=== PATIENT | female | born 1945 | race Caucasian/White ===

== ENCOUNTER 2018-07-29 18:24 | Emergency (ER) | payer MEDICARE, BC ==
[~2018-07-29] VITALS: Ht 157.5 cm; Wt 89.8 kg
--- NOTE | 2018-07-29 18:42 | ED Chest Pain ---
General Stated Complaint: CHEST PAIN Source: patient History of Present Illness Date Seen by Provider: Jul 29, 2018 Time Seen by Provider: 18:28 Initial Comments 73 yo F presenting with complaints of general weakness for over a week. She states that she just does not feel good and she was feeling like dann peres had chest pressure since yesterday. She called her sister that is a nurse and was told to come get checked out today. she has not seen her doctor during the week. She is not any worse tonight but because of her sister telling her to come in to the ED she is here tonight. She has had nausea but no vomiting. She has been having d iarrhea but states it has been a recurring issue for her to have diarrhea. She feels short of breath as well as feeling general weakness. Chest pressure is worse with exertion. Allergies and Home Medications Allergies Coded Allergies: Penicillins (Verified Allergy, Unknown, 07/29/18) Home Medications Cephalexin 500 Mg Tablet, 500 MG PO TID Prescribed by: BJ PRESCOTT on 07/29/18 7944 Patient Home Medication List Home Medication List Reviewed: Yes Review of Systems Review of Systems Constitutional: chills; No fever; malaise, weakness EENTM: No Symptoms Reported Respiratory: Cough, Shortness of Air, SOA With Exertion Cardiovascular: Chest Pain (pressure that feels better when she holds her hand on her chest) Gastrointestinal: Denies Abdominal Pain; Diarrhea (recurring issue for her), Nausea, Poor Appetite; Denies Vomiting Genitourinary: Denies Frequency, Denies Flank Pain, Denies Pain, Denies Urgency Musculoskeletal: no symptoms reported Skin: no symptoms reported Psychiatric/Neurological: Anxiety Endocrine: No Symptoms Reported Hematologic/Lymphatic: No Symptoms Reported Past Haheoam-Wqygpr-Reqgvy Hx Past Med/Social Hx: Reviewed Nursing Past Med/Soc Hx Physical Exam Vital Signs Vital Signs - First Documented 07/29/18 07/29/18 18:30 22:31 Temp 98.3 Pulse 73 Resp 18 B/P (MAP) 120/88 (99) Pulse Ox 96 O2 Delivery Room Air Capillary Refill : Height, Weight, BMI Height: '" Weight: lbs. oz. kg; BMI Method: General Appearance: No Apparent Distress, WD/WN HEENT: PERRL/EOMI, Pharynx Normal Neck: Full Range of Motion, Normal Inspection, Non Tender, Supple Respiratory: Chest Non Tender, Lungs Clear, Normal Breath Sounds, No Accessory Muscle Use, No Respiratory Distress Cardiovascular: Regular Rate, Rhythm, No Edema, Normal Peripheral Pulses Gastrointestinal: Normal Bowel Sounds, No Pulsatile Mass, Non Tender, Soft Rectal: Deferred Extremity: Normal Capillary Refill, Normal Range of Motion, Non Tender, No Calf Tenderness Neurologic/Psychiatric: Alert, Oriented x3 Skin: Normal Color, Warm/Dry Progress/Results/Core Measures Results/Orders Lab Results Laboratory Tests Test 07/29/18 18:36 07/29/18 18:40 Range/Units White Blood Count 7.3 4.3-11.0 10^3/uL Red Blood Count 4.55 4.35-5.85 10^6/uL Hemoglobin 13.7 11.5-16.0 G/DL Hematocrit 41 35-52 % Mean Corpuscular Volume 91 80-99 FL Mean Corpuscular Hemoglobin 30 25-34 PG Mean Corpuscular Hemoglobin Concent 33 32-36 G/DL Red Cell Distribution Width 13.3 10.0-14.5 % Platelet Count 274 130-400 10^3/uL Mean Platelet Volume 9.7 7.4-10.4 FL Neutrophils (%) (Auto) 57 42-75 % Lymphocytes (%) (Auto) 35 12-44 % Monocytes (%) (Auto) 6 0-12 % Eosinophils (%) (Auto) 2 0-10 % Basophils (%) (Auto) 0 0-10 % Neutrophils # (Auto) 4.2 1.8-7.8 X 10^3 Lymphocytes # (Auto) 2.5 1.0-4.0 X 10^3 Monocytes # (Auto) 0.4 0.0-1.0 X 10^3 Eosinophils # (Auto) 0.2 0.0-0.3 10^3/uL Basophils # (Auto) 0.0 0.0-0.1 10^3/uL Prothrombin Time 12.9 12.2-14.7 SEC INR Comment 0.9 0.8-1.4 Activated Partial Thromboplast Time 26 24-35 SEC Sodium Level 144 135-145 MMOL/L Potassium Level 4.1 3.6-5.0 MMOL/L Chloride Level 103 98-107 MMOL/L Carbon Dioxide Level 26 21-32 MMOL/L Anion Gap 15 H 5-14 MMOL/L Blood Urea Nitrogen 13 7-18 MG/DL Creatinine 0.78 0.60-1.30 MG/DL Estimat Glomerular Filtration Rate > 60 BUN/Creatinine Ratio 17 Glucose Level 210 H 70-105 MG/DL Calcium Level 10.1 8.5-10.1 MG/DL Corrected Calcium 10.3 H 8.5-10.1 MG/DL Magnesium Level 1.8 1.8-2.4 MG/DL Total Bilirubin 0.2 0.1-1.0 MG/DL Aspartate Amino Transf (AST/SGOT) 14 5-34 U/L Alanine Aminotransferase (ALT/SGPT) 13 0-55 U/L Alkaline Phosphatase 135 40-136 U/L Troponin T 8 <=10 NG/L Pro-B-Type Natriuretic Peptide 124.6 H <75.0 PG/ML Total Protein 6.8 6.4-8.2 GM/DL Albumin 3.8 3.2-4.5 GM/DL Urine Color YELLOW Urine Clarity CLOUDY Urine pH 5.5 5-9 Urine Specific [place] >1.030 1.016-1.022 Urine Protein NEGATIVE NEGATIVE Urine Glucose (UA) NEGATIVE NEGATIVE Urine Ketones TRACE H NEGATIVE Urine Nitrite NEGATIVE NEGATIVE Urine Bilirubin NEGATIVE NEGATIVE Urine Urobilinogen 0.2 NORMAL MG/DL Urine Leukocyte Esterase 1+ H NEGATIVE Urine RBC (Auto) NEGATIVE NEGATIVE Urine RBC NONE /HPF Urine WBC 50-100 H /HPF Urine Squamous Epithelial Cells 5-10 /HPF Urine Crystals NONE /LPF Urine Bacteria MODERATE H /HPF Urine Casts NONE /LPF Urine Mucus MODERATE H /LPF Urine Culture Indicated YES My Orders Orders - BJ PRESCOTT MD Cbc With Automated Diff (07/29/18 18:29) Magnesium (07/29/18 18:29) Chest 1 View Ap/Pa Only (07/29/18 18:29) Ekg Tracing (07/29/18 18:29) Comprehensive Metabolic Panel (07/29/18 18:29) Protime With Inr (07/29/18 18:29) Partial Thromboplastin Time (07/29/18 18:29) O2 (07/29/18 18:29) Monitor-Rhythm Ecg Trace Only (07/29/18 18:29) Ed Iv/Invasive Line Start (07/29/18 18:29) Ua Culture If Indicated (07/29/18 18:44) Urine Culture (07/29/18 18:40) Troponin T (07/29/18 19:15) Probnp Fs (07/29/18 19:15) Ceftriaxone For Iv Use (Rocephin For I (07/29/18 22:30) Ketorolac Injection (Toradol Injection) (07/29/18 22:29) Medications Given in ED Current Medications Medications Dose Ordered Sig/Brennan Route Start Time Stop Time Status Last Admin Dose Admin Ceftriaxone Sodium 1000 mg/ Sterile Water 10 ml @ 200 mls/hr ONCE ONCE IV 07/29/18 22:30 07/29/18 22:32 DC 07/29/18 22:22 200 MLS/HR Vital Signs/I&O 07/29/18 07/29/18 18:30 22:31 Temp 98.3 98.3 Pulse 73 73 Resp 18 18 B/P (MAP) 120/88 (99) 120/88 (99) Pulse Ox 96 96 O2 Delivery Room Air 07/30/18 00:00 Intake Total 10 ml Balance 10 ml Progress Progress Note #1: Progress Note Check labs, urine and CXR with ECG. Since complaining of general weakness and chest pressure since yesterday will see what her troponin shows since her symptoms have been present for over 24 hours if this was cardiac related she should have elevated enzymes by now. Progress Note #2: Progress Note Her labs do not show any acute significant abnormality on CBC, chemistry or cardiac enzymes. Her cardiac enzymes are negative. Her urinalysis does show evidence of a urinary tract infection. Counseled patient that her testing was negative for heart attack or signs of damage to her heart rate now. With her chest pain being reproducible with palpation and improved with light pressure support upper chest this seems to be more musculoskeletal chest wall pain. Will try a single dose of Toradol to see if that might help with her pain. We'll also start her on antibiotics for the UTI and continue oral antibiotics at home. Counseled on follow-up and return precautions and advised to check with the cli artie if continued concerns and problems. Initial ECG Impression Date: Jul 29, 2018 Initial ECG Impression Time: 18:32 Initial ECG Rate: 65 Initial ECG Rhythm: Normal Sinus Initial ECG Intervals: Normal Initial ECG Impression: Normal Initial ECG Comparisson: No Previous ECG Available Comment Normal sinus rhythm with rate of 65 beats per minute with CO interval of 166 ms. QT interval of 394 ms and QTc o f [address] elevation. T wave flattening. No prior tracing for comparison. Diagnostic Imaging Diagonstic Imaging: Xray Plain Films/CT/US/NM/MRI: chest Comments NAME: NICK[facility]OWNSEND [facility] REC#: [id number] PT STATUS: REG ER : 1945 PHYSICIAN: BJ PRESCOTT MD ADMIT DATE: 07/29/18/ER FS Signed Date of Exam:07/29/18 CHEST 1 VIEW AP/PA ONLY INDICATION: Chest pain. EXAMINATION: Portable chest. FINDINGS: Lungs are well-aerated. No infiltrate is seen. The heart is not enlarged. No pulmonary edema. No pneumothorax or pleural effusion. IMPRESSION: No acute abnormality. Dictated by: Dictated on workstation # [id number] Dict: 07/29/182105 Trans: 07/29/182131 E [id number] Interpreted by: TIARA FERRERA MD Electronically signed by: TIARA FERRERA MD 07/29/182131 Reviewed: Reviewed by Me (and radiologist's reading) Departure Impression Primary Impression: Acute cystitis without hematuria Additional Impressions: Generalized weakness Left-sided chest wall pain Non-cardiac chest pain Disposition: HOME, SELF-CARE Condition: Stable Departure-Patient Inst. Decision time for Depature: 22:30 Referrals: AMADEO CASTILLO DO (PCP/Family) Primary Care Physician Patient Instructions: Chest Pain That Is Not Caused by the Heart (DC), Acute Cystitis (DC), Generalized Weakness (DC) Add. Discharge Instructions: stay well hydrated and get plenty of rest. Check with clinic for continued problems if not improving by Monday Take the antibiotics until gone Try alternating ice then heat to your chest wall to help with pain Scripts Cephalexin (Cephalexin) 500 Mg Tablet 500 MG PO TID for UTI for 7 Days, #21 TAB 0 Refills Prov: BJ PRESCOTT MD 07/29/18 BJ PRESCOTT MD Jul 29, 2018 18:42
[2018-07-29 18:44] LABS: HEMOGLOBIN 13.7 G/DL (11.5-16.0); MEAN CORPUSCULAR HEMOGLOBIN 30 PG (25-34); WHITE BLOOD COUNT 7.3 10^3/uL (4.3-11.0)
[2018-07-29 18:45] LABS: BASOPHILS % (AUTO) 0 % (0-10); EOSINOPHILS # (AUTO) 0.2 10^3/uL (0.0-0.3); EOSINOPHILS % (AUTO) 2 % (0-10); HEMATOCRIT 41 % (35-52); LYMPHOCYTES # (AUTO) 2.5 X 10^3 (1.0-4.0); LYMPHOCYTES % (AUTO) 35 % (12-44); MEAN CORPUSCULAR HGB CONC 33 G/DL (32-36); MEAN CORPUSCULAR VOLUME 91 FL (80-99); MEAN PLATELET VOLUME 9.7 FL (7.4-10.4); MONOCYTES # (AUTO) 0.4 X 10^3 (0.0-1.0); MONOCYTES % (AUTO) 6 % (0-12); NEUTROPHILS # (AUTO) 4.2 X 10^3 (1.8-7.8); NEUTROPHILS % (AUTO) 57 % (42-75); PLATELET COUNT 274 10^3/uL (130-400); RED CELL DISTRIBUTION WIDTH 13.3 % (10.0-14.5)
[2018-07-29 18:56] LABS: COLOR,URINE YELLOW
[2018-07-29 18:57] LABS: BACTERIA,URINE MODERATE /HPF; BILIRUBIN,URINE NEGATIVE (NEGATIVE); CLARITY,URINE CLOUDY; GLUCOSE, URINE (UA) NEGATIVE (NEGATIVE); KETONES,URINE TRACE (NEGATIVE); LEUKOCYTE ESTERASE ,URINE 1+ (NEGATIVE); NITRITE,URINE NEGATIVE (NEGATIVE); PH,URINE 5.5 (5-9); PROTEIN,URINE NEGATIVE (NEGATIVE); UROBILINOGEN,URINE 0.2 MG/DL (NORMAL); WBC,URINE 50-100 /HPF
[2018-07-29 19:00] LABS: INR 0.9 (0.8-1.4); PROTHROMBIN TIME PATIENT 12.9 SEC (12.2-14.7)
[2018-07-29 19:06] LABS: ALANINE AMINOTRANSFERASE 13 U/L (0-55); ALKALINE PHOSPHATASE 135 U/L (40-136); BILIRUBIN,TOTAL 0.2 MG/DL (0.1-1.0); BUN/CREATININE RATIO 17; CALCIUM 10.1 MG/DL (8.5-10.1); CARBON DIOXIDE 26 MMOL/L (21-32); CHLORIDE 103 MMOL/L (98-107); CREATININE SERUM 0.78 MG/DL (0.60-1.30); GFR ESTIMATED > 60; GLUCOSE 210 MG/DL (70-105); MAGNESIUM 1.8 MG/DL (1.8-2.4); POTASSIUM 4.1 MMOL/L (3.6-5.0); SODIUM 144 MMOL/L (135-145); TOTAL PROTEIN 6.8 GM/DL (6.4-8.2)
[2018-07-29 19:07] LABS: ALBUMIN 3.8 GM/DL (3.2-4.5)
--- NOTE | 2018-07-29 21:12 | Diagnostic Imaging Report ---
INDICATION: Chest pain. EXAMINATION: Portable chest. FINDINGS: Lungs are well-aerated. No infiltrate is seen. The heart is not enlarged. No pulmonary edema. No pneumothorax or pleural effusion. IMPRESSION: No acute abnormality. Dictated by: Dictated on workstation # [id number]
[2018-07-29] MEDS ORDERED: KETOROLAC 30 MG/ML VIAL IVP STA (22:29)
[2018-07-29] MEDS ORDERED: cefTRIAXone FOR IV USE 1,000 MG in WATER (STERILE) FOR INJECTION 10 ML IV ONE (22:30)
[2018-07-29 22:31] VITALS: BP 120/88
[2018-07-29] MEDS ORDERED: CEPH500T PO (22:32)
== END 2018-07-29 22:43 | disposition home or self-care (01) ==
LOC: ER FS 18:27
DX: N30.00 Acute cystitis without hematuria (principal); R53.1 Weakness; R07.89 Other chest pain; Z88.0 Allergy status to penicillin
CPT/HCPCS: 36415; 71045; 80053; 81000; 83735; 83880; 84484; 85025; 85610; 85730; 87077; 87088; 87186; 93005; 93041; 96374

== ENCOUNTER → 2020-09-30 | Outpatient (CLI) | payer MEDICARE, BC ==
[~2020-09-30] MED LIST: CEPH500T PO
--- NOTE | 2020-09-30 17:52 | Diagnostic Imaging Report ---
EXAM: Thoracic spine 3V AP LAT swim. INDICATION: Low back pain. COMPARISON: None. FINDINGS: Mild right apex upper thoracic curvature. Anterior wedging of the T11 vertebral body results in approximately 50% height loss. This is age indeterminate. Demineralization. Mild diffuse degenerative endplate changes. IMPRESSION: Age-indeterminate anterior wedging of the T11 vertebral body resulting in approximately 50% height loss. This could be better evaluated with MRI. Dictated by: Dictated on workstation # [id number]
--- NOTE | 2020-09-30 17:53 | Diagnostic Imaging Report ---
EXAM: Lumbar spine 2 or 3 view INDICATION: Low back pain. COMPARISON: Thoracic spine radiograph also performed today. FINDINGS: Anterior wedging of the T11 vertebral body resulting in approximately 50% height loss is age indeterminate. Moderate diffuse degenerative endplate changes in the lumbar spine are more severe at L1-L2. Demineralization. Visualized pelvis is intact. Surgical clips RUQ. IMPRESSION: 1. Moderate to severe spondylotic changes in the lumbar spine are greatest at L1-L2. 2. 50% height loss of the T11 vertebral body is age indeterminate. This could be better evaluated with MRI. Dictated by: Dictated on workstation # [id number]
== END ==
LOC: RAD FS 16:38
PROVIDERS: ATTEND Nurse Practitioner Family
DX: M47.816 Spondylosis without myelopathy or radiculopathy, lumbar region (principal); M48.54XA Collapsed vertebra, not elsewhere classified, thoracic region, initial encounter for fracture; Z91.81 History of falling
CPT/HCPCS: 72072; 72100

== ENCOUNTER → 2020-10-23 | Outpatient (CLI) | payer MEDICARE, BC ==
--- NOTE | 2020-10-23 16:44 | Diagnostic Imaging Report ---
EXAM: MRI THORACIC SPINE W/O CON INDICATION: Fall six weeks ago. Compression fracture. COMPARISON: Thoracic spine radiographs 09/30/2020. MRI lumbar spine also performed today. FINDINGS: Anterior wedging of the T11 vertebral body resulting in approximately 50% height loss anteriorly demonstrates no convincing edema and should be chronic. There is poor fat saturation on the thoracic spine images. However, the level is also seen on today's lumbar spine MRI that demonstrates adequate fat saturation and there is no edema in the segment other than a hemangioma in the posterior vertebral body. Scattered additional benign hemangiomas including T7 and T12. No other compression deformities. Alignment is unremarkable. Mild scattered degenerative endplate changes. No high-grade spinal canal or neural foraminal narrowing. No abnormal signal in the thoracic spinal cord. The visualized paravertebral soft tissues are unremarkable. IMPRESSION: 1. No acute MRI findings in the thoracic spine. The compression fracture of T11 resulting in approximately 50% height loss is chronic. 2. Mild spondylotic changes result in no high-grade neural impingement. 3. No abnormal signal in the thoracic spinal cord. Dictated by: Dictated on workstation # [id number]
--- NOTE | 2020-10-23 17:08 | Diagnostic Imaging Report ---
PROCEDURE: MRI lumbar spine. TECHNIQUE: Multiplanar, multisequence MRI of the lumbar spine was performed without contrast. INDICATION: Fall six weeks ago. COMPARISON: MRI thoracic spine also performed today. Lumbar spine radiograph 09/30/2020. FINDINGS: There are five lumbar-type vertebral bodies for the purposes of this report. Normal alignment. Chronic anterior wedging of T11 results in approximately 50% height loss. Schmorl's node in the superior endplate of T12. Benign hemangioma in the T11 posterior vertebral body. Modic type II degenerative endplate changes at L1-L2. Edema in the superior endplate of L3 with approximately 10% height loss on the right is suspicious for an acute to subacute compression fracture. No retropulsion. No finding suspicious for posterior element involvement. No abnormal signal in the conus which terminates at L1-L2. Normal morphology of the cauda equina. The visualized paravertebral soft tissues are unremarkable. L1-L2: Annular disc bulging and facet arthropathy result in mild spinal canal and bilateral lateral recess narrowing. Mild left and moderate right neural foraminal narrowing. L2-L3: Broad-based disc bulge, ligamentous hypertrophy and facet arthropathy result in moderate bilateral lateral recess and mild spinal canal narrowing. Moderate left and mild right neural foraminal narrowing. L3-L4: Mild facet arthropathy and ligamentous hypertrophy. No substantial spinal canal or lateral recess narrowing. Mild left neural foraminal narrowing. L4-L5: Annular disc bulging and ligamentous hypertrophy result in moderate spinal canal stenosis. Facet arthropathy also contributes to moderate to severe bilateral neural foraminal narrowing. L5-S1: No substantial spinal canal or lateral recess narrowing. Facet arthropathy and disc space height loss result in severe right and moderate left neural foraminal narrowing. IMPRESSION: 1. Acute to subacute compression fracture of L3 with approximately 10% height loss of the right superior endplate. No retropulsion or evidence of posterior element involvement. 2. Spondylotic changes result in moderate spinal canal stenosis at L4-L5. 3. Multilevel high-grade lateral recess and neural foraminal narrowing detailed above level by level. Dictated on workstation # [id number]
== END ==
LOC: RAD 14:00
PROVIDERS: ATTEND Nurse Practitioner Family
DX: M51.37 Other intervertebral disc degeneration, lumbosacral region (principal); M47.817 Spondylosis without myelopathy or radiculopathy, lumbosacral region; M48.07 Spinal stenosis, lumbosacral region; M47.896 Other spondylosis, lumbar region; M47.815 Spondylosis without myelopathy or radiculopathy, thoracolumbar region; M51.35 Other intervertebral disc degeneration, thoracolumbar region; S32.030A Wedge compression fracture of third lumbar vertebra, initial encounter for closed fracture; S22.080A Wedge compression fracture of T11-T12 vertebra, initial encounter for closed fracture; W19.XXXA Unspecified fall, initial encounter
CPT/HCPCS: 72146; 72148

== ENCOUNTER → 2021-06-15 | Outpatient (CLI) | payer MEDICARE, BC ==
--- NOTE | 2021-06-15 11:10 | Diagnostic Imaging Report ---
INDICATION: Right wrist pain. Injury. COMPARISON: None FINDINGS: Multiple radiographic views of the right wrist were obtained. There is no acute fracture or dislocation. Osseous structures are intact. Joint spaces are maintained. 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 No unexpected radiopaque foreign bodies are seen. IMPRESSION: 1. No acute fracture or dislocation of the right wrist. Dictated by: Dictated on workstation # [id number]
== END ==
LOC: RAD FS 10:02
PROVIDERS: ATTEND Nurse Practitioner
DX: S69.91XA Unspecified injury of right wrist, hand and finger(s), initial encounter (principal); X58.XXXA Exposure to other specified factors, initial encounter
CPT/HCPCS: 73110

== ENCOUNTER → 2021-06-28 | Outpatient (CLI) | payer MEDICARE, BC ==
--- NOTE | 2021-06-28 11:04 | Diagnostic Imaging Report ---
INDICATION: Right wrist pain and tendinitis. TECHNIQUE/COMPARISON: AP, oblique, and lateral views of the right wrist were obtained. Comparison is made to the study of 06/15/2021. FINDINGS: Advanced narrowing of the 1st carpometacarpal joint is again noted with subchondral sclerosis and marginal spurring. There is also degenerative type sclerosis at the pisotriquetral joint. No acute fracture is seen. There is mild narrowing of the radiocarpal joint space. IMPRESSION: Rather advanced degenerative findings without acute abnormality detected. Dictated by: Dictated on workstation # [id number]
== END ==
LOC: RAD FS 10:24
PROVIDERS: ATTEND Nurse Practitioner
DX: S60.211A Contusion of right wrist, initial encounter (principal); M67.833 Other specified disorders of tendon, right wrist; M19.031 Primary osteoarthritis, right wrist; X58.XXXA Exposure to other specified factors, initial encounter
CPT/HCPCS: 73110

== ENCOUNTER 2021-09-04 17:23 | Emergency (ER) | payer MEDICARE, BC ==
[~2021-09-04] VITALS: Ht 157 cm; Wt 86.0 kg
[2021-09-04 17:32] LABS: BASOPHILS % (AUTO) 0 % (0-10); EOSINOPHILS # (AUTO) 0.2 10^3/uL (0.0-0.3); EOSINOPHILS % (AUTO) 3 % (0-10); HEMATOCRIT 42 % (35-52); HEMOGLOBIN 14.3 g/dL (11.5-16.0); LYMPHOCYTES # (AUTO) 2.8 10^3/uL (1.0-4.0); LYMPHOCYTES % (AUTO) 35 % (12-44); MEAN CORPUSCULAR HEMOGLOBIN 30 pg (25-34); MEAN CORPUSCULAR HGB CONC 34 g/dL (32-36); MEAN CORPUSCULAR VOLUME 89 fL (80-99); MEAN PLATELET VOLUME 9.4 fL (9.0-12.2); MONOCYTES # (AUTO) 0.5 10^3/uL (0.0-1.0); MONOCYTES % (AUTO) 6 % (0-12); NEUTROPHILS # (AUTO) 4.5 10^3/uL (1.8-7.8); NEUTROPHILS % (AUTO) 56 % (42-75); PLATELET COUNT 274 10^3/uL (130-400); WHITE BLOOD COUNT 8.1 10^3/uL (4.3-11.0)
[2021-09-04 17:37] VITALS: BP 141/78
[2021-09-04] MEDS ORDERED: KETOROLAC 30 MG/ML VIAL IVP STA (17:40)
[2021-09-04 17:47] LABS: INR 0.9 (0.8-1.4); PROTHROMBIN TIME PATIENT 12.3 SEC (12.2-14.7)
--- NOTE | 2021-09-04 17:47 | ED Chest Pain ---
General Chief Complaint: Chest Pain Stated Complaint: CHEST PAIN Source: patient History of Present Illness Date Seen by Provider: Sep 04, 2021 Time Seen by Provider: 17:24 Initial Comments 76-year-old female presenting with complaints of chest pain that is going into her upper back. She states this started 2 days ago when she woke up. She denies any trauma or injury. She has not been coughing or short of breath more than usual. She denies any numbness or tingling into her arms or legs. She states the pain comes and goes in intensity but is there a little bit all the time. At times it will be more severe but she cannot pinpoint anything that makes it worse. She has not tried taking any medicine for it. Timing/Duration: 1-2 days (Waxing and waning) Severity/Quality: severe, sharp Location: back (Upper back radiating from her chest) Radiation: back Activities at Onset: other (Woke up from sleep with the pain 2 days ago) Prior CP/Workup: heart attack ASA po RACECAR DRIVER: No NTG SL RACECAR DRIVER: No Associated Symptoms: No abdominal pain, No diaphoresis, No dizziness, No edema, No fatigue, No fever/chills, No headache, No heartburn, No nausea/vomiting, No rash, No swelling/lump in chest, No syncope, No weakness Allergies and Home Medications Allergies Coded Allergies: Penicillins (Verified Allergy, Unknown, 07/29/18) Patient Home Medication List Home Medication List Reviewed: Yes Cephalexin (Cephalexin) 500 Mg Tablet, 500 MG PO TID Prescribed by: BJ PRESCOTT on 07/29/182231 Ibuprofen (Ibuprofen) 600 Mg Tablet, 600 MG PO Q8H PRN for PAIN-MILD Prescribed by: BJ PRESCOTT on 09/04/21 184 Methocarbamol (Methocarbamol) 750 Mg Tablet, 750 MG PO Q8H PRN for MUSCLE SPASMS Prescribed by: BJ PRESCOTT on 09/04/21 184 Review of Systems Review of Systems Constitutional: No chills, No fever EENTM: No Symptoms Reported Respiratory: See HPI Cardiovascular: See HPI Gastrointestinal: No Symptoms Reported Genitourinary: No Symptoms Reported Musculoskeletal: neck pain (Pain to palpation on the upper back and lower neck) Skin: No change in color, No rash Psychiatric/Neurological: No Symptoms Reported Endocrine: No Symptoms Reported Hematologic/Lymphatic: Denies Blood Clots Past Lxgchre-Oxisym-Rvymyo Hx Patient Social History Tobacco Use?: No Use of E-Cig and/or Vaping dev: No Substance use?: No Alcohol Use?: No Seasonal Allergies Seasonal Allergies: No Past Medical History Surgeries: Yes (kidney removed; lumpectomy) Bladder Surgery, Gallbladder, Hysterectomy, Orthopedic Cardiac: Yes Heart Attack HEENT: Yes Macular Degeneration Cancer: Yes Kidney Physical Exam Vital Signs Vital Signs - First Documented 09/04/21 17:37 Temp 36.7 Pulse 71 Resp 18 B/P (MAP) 141/78 (99) Pulse Ox 96 O2 Delivery Room Air Capillary Refill : Height, Weight, BMI Height: 5'2.00" Weight: 198lbs. oz. 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 Norm as Tested Skin: Normal Color, Warm/Dry Progress/Results/Core Measures Results/Orders Lab Results Laboratory Tests Test 09/04/21 17:30 Range/Units White Blood Count 8.1 4.3-11.0 10^3/uL Red Blood Count 4.76 3.80-5.11 10^6/uL Hemoglobin 14.3 11.5-16.0 g/dL Hematocrit 42 35-52 % Mean Corpuscular Volume 89 80-99 fL Mean Corpuscular Hemoglobin 30 25-34 pg Mean Corpuscular Hemoglobin Concent 34 32-36 g/dL Red Cell Distribution Width 12.8 10.0-14.5 % Platelet Count 274 130-400 10^3/uL Mean Platelet Volume 9.4 9.0-12.2 fL Immature Granulocyte % (Auto) 0 % Neutrophils (%) (Auto) 56 42-75 % Lymphocytes (%) (Auto) 35 12-44 % Monocytes (%) (Auto) 6 0-12 % Eosinophils (%) (Auto) 3 0-10 % Basophils (%) (Auto) 0 0-10 % Neutrophils # (Auto) 4.5 1.8-7.8 10^3/uL Lymphocytes # (Auto) 2.8 1.0-4.0 10^3/uL Monocytes # (Auto) 0.5 0.0-1.0 10^3/uL Eosinophils # (Auto) 0.2 0.0-0.3 10^3/uL Basophils # (Auto) 0.0 0.0-0.1 10^3/uL Immature Granulocyte # (Auto) 0.0 0.0-0.1 10^3/uL Prothrombin Time 12.3 12.2-14.7 SEC INR Comment 0.9 0.8-1.4 Activated Partial Thromboplast Time 24 24-35 SEC Sodium Level 141 135-145 MMOL/L Potassium Level 4.4 3.6-5.0 MMOL/L Chloride Level 103 98-107 MMOL/L Carbon Dioxide Level 28 21-32 MMOL/L Anion Gap 10 5-14 MMOL/L Blood Urea Nitrogen 13 7-18 MG/DL Creatinine 0.82 0.60-1.30 MG/DL Estimat Glomerular Filtration Rate 74 BUN/Creatinine Ratio 16 Glucose Level 138 H 70-105 MG/DL Calcium Level 10.1 8.5-10.1 MG/DL Corrected Calcium 10.1 8.5-10.1 MG/DL Magnesium Level 1.8 1.6-2.4 MG/DL Total Bilirubin 0.2 0.1-1.0 MG/DL Aspartate Amino Transf (AST/SGOT) 13 5-34 U/L Alanine Aminotransferase (ALT/SGPT) 11 0-55 U/L Alkaline Phosphatase 112 40-136 U/L Myoglobin 28.6 <58.0 NG/ML Troponin I < 0.30 <0.30 NG/ML Pro-B-Type Natriuretic Peptide 163.0 <450.0 PG/ML Total Protein 6.9 6.4-8.2 GM/DL Albumin 4.0 3.2-4.5 GM/DL My Orders Orders - BJ PRESCOTT MD Cbc With Automated Diff (09/04/21 17:26) Magnesium (09/04/21 17:26) Ekg Tracing (09/04/21 17:26) Comprehensive Metabolic Panel (09/04/21 17:26) Myoglobin Serum (09/04/21 17:26) Protime With Inr (09/04/21 17:26) Partial Thromboplastin Time (09/04/21 17:26) O2 (09/04/21 17:26) Monitor-Rhythm Ecg Trace Only (09/04/21 17:26) Ed Iv/Invasive Line Start (09/04/21 17:26) Troponin I Fs (09/04/21 17:26) Probnp Fs (09/04/21 17:26) Ct Angio Chest W (09/04/21 17:40) Ketorolac Injection (Toradol Injection) (09/04/21 17:40) Iohexol Injection (Omnipaque 350 Mg/Ml 1 (09/04/21 18:00) Received Contrast (Hold Metformin- Contr (09/04/21 18:00) Sodium Chloride Flush (Catheter Flush Sy (09/04/21 18:00) Ns (Ivpb) (Sodium Chloride 0.9% Ivpb Bag (09/04/21 18:00) Orphenadrine Inj (Ed Only) (Norflex Inje (09/04/21 19:05) Medications Given in ED Current Medications Medications Dose Ordered Sig/Brennan Route Start Time Stop Time Status Last Admin Dose Admin Iohexol 100 ml ONCE ONCE IV 09/04/21 18:00 09/04/21 18:01 DC 09/04/21 18:19 100 ML Sodium Chloride 10 ml NEEDED PRN IV 09/04/21 18:00 09/04/21 18:19 10 ML Sodium Chloride 100 ml ONCE ONCE IV 09/04/21 18:00 09/04/21 18:01 DC 09/04/21 18:19 100 ML Vital Signs/I&O 09/04/21 17:37 Temp 36.7 Pulse 71 Resp 18 B/P (MAP) 141/78 (99) Pulse Ox 96 O2 Delivery Room Air Progress Progress Note #1: Progress Note Obtain basic labs and electrocardiogram. Since she has pain radiating into her back will obtain a CT angiogram to evaluate her aorta and pulmonary structures. Try a dose of Toradol 15 mg IV for pain. Progress Note #2: Progress Note Labs are all stable without acute significant normality. The cardiac enzymes are negative. Obtain CT angiogram to evaluate the chest Progress Note #3: Progress Note CT angiogram does not show any signs of pulmonary embolus or aortic dissection. With patient having tenderness to palpation over the upper back and neck she may be having more musculoskeletal pain. We will try treating with anti- inflammatory and low-dose muscle relaxer. Counseled to check back with primary care provider during the week for continued pain and symptoms. Initial ECG Impression Date: Sep 04, 2021 Initial ECG Impression Time: 17:30 Initial ECG Comparisson: No Previous ECG Available Comment Normal sinus rhythm with a heart rate of 68 bpm. SC interval 156 ms. Left anterior fascicular block. No acute ST elevation. There is global T wave flattening. QT interval 334 ms with a QTc interval 351 ms. There is no prior tracing available for comparison. Diagnostic Imaging Diagonstic Imaging: CT Plain Films/CT/US/NM/MRI: chest Comments NAME: NICKO [facility]OWNSEND [facility] REC#: [id number] PT STATUS: REG ER : 1945 PHYSICIAN: BJ PRESCOTT MD ADMIT DATE: 09/04/21/ER FS Draft Date of Exam:09/04/21 CT ANGIO CHEST W PROCEDURE: CT angiography of the chest with contrast. TECHNIQUE: Multiple contiguous axial images were obtained through the chest after uneventful bolus administration of intravenous contrast. 3D reconstructed CTA MIP acquisitions were also performed. Auto Exposure Controls were utilized during the CT exam to meet ALARA standards for radiation dose reduction. INDICATION: Chest pain, shortness of breath. FINDINGS: There is some atelectasis in the lingula. There is no other discrete pulmonary nodule, mass or infiltrate. There is no pleural or pericardial fluid. There is no pneumothorax. There is a hiatal hernia. The thoracic aorta is normal in caliber and without evidence of dissection. There is no filling defect within the pulmonary arteries to suggest pulmonary embolism. There is no pathologically enlarged adenopathy. There is no pneumothorax. The visualized intra-abdominal structures are unremarkable. IMPRESSION: 1. No evidence of aortic aneurysm, dissection or pulmonary embolism. 2. Minimal atelectasis and/or pneumonitis in the lingula. 3. Hiatal hernia. Dictated on workstation # [id number] Dict: 09/04/211831 Trans: 09/04/211838 PJE [id number] Interpreted by: ALEKSEY KOCH MD Electronically signed by: Reviewed: Reviewed by Me Departure Impression Primary Impression: Atypical chest pain Additional Impression: Upper back strain Qualified Codes: S29.012A - Strain of muscle and tendon of back wall of thorax, initial encounter Disposition: HOME, SELF-CARE Condition: Stable Departure-Patient Inst. Decision time for Depature: 18:45 Referrals: AMADEO CASTILLO DO (PCP) Primary Care Physician Patient Instructions: Muscle Strain ED, Chest Pain, Adult ED, Using Cold for Pain Add. Discharge Instructions: You are blood work, electrocardiogram, CT scan of the chest all look okay. There is no signs of a heart attack, aortic dissection or problems with the aorta, blood clots in the lungs. Try treating with an anti-inflammatory and a muscle relaxer in case this is more of a muscle strain. May apply ice 10 to 15 minutes every few hours as needed for pain. Check back with your primary care provider during the week if continued concerns All discharge instructions reviewed with patient and/or family. Voiced understanding. Scripts Methocarbamol (Methocarbamol) 750 Mg Tablet 750 MG PO Q8H PRN for MUSCLE SPASMS for 7 Days, #21 TAB 0 Refills Prov: BJ PRESCOTT MD 09/04/21 Ibuprofen (Ibuprofen) 600 Mg Tablet 600 MG PO Q8H PRN for PAIN-MILD for 7 Days, #21 TAB 0 Refills Prov: BJ PRESCOTT MD 09/04/21 BJ PRESCOTT MD Sep 04, 2021 17:47
[2021-09-04 17:52] LABS: BILIRUBIN,TOTAL 0.2 MG/DL (0.1-1.0); CALCIUM 10.1 MG/DL (8.5-10.1); CREATININE SERUM 0.82 MG/DL (0.60-1.30); MAGNESIUM 1.8 MG/DL (1.6-2.4); POTASSIUM 4.4 MMOL/L (3.6-5.0); TOTAL PROTEIN 6.9 GM/DL (6.4-8.2)
[2021-09-04] MEDS ORDERED: NS 100 ML (IVPB) BAG IV ONE (18:00)
[2021-09-04] MEDS ORDERED: IOHEXOL 350 MG/ML 100 ML (OMNIPAQUE 350) VIAL IV ONE (18:00)
[2021-09-04] MEDS ORDERED: HOLD METFORMIN - RECEIVED CONTRAST 20 ML VIAL IV SCH (18:00)
[2021-09-04] MEDS ORDERED: CATHETER FLUSH 10 ML SYR IV PRN (18:00)
--- NOTE | 2021-09-04 18:41 | Diagnostic Imaging Report ---
PROCEDURE: CT angiography of the chest with contrast. TECHNIQUE: Multiple contiguous axial images were obtained through the chest after uneventful bolus administration of intravenous contrast. 3D reconstructed CTA MIP acquisitions were also performed. Auto Exposure Controls were utilized during the CT exam to meet ALARA standards for radiation dose reduction. INDICATION: Chest pain, shortness of breath. FINDINGS: There is some atelectasis in the lingula. There is no other discrete pulmonary nodule, mass or infiltrate. There is no pleural or pericardial fluid. There is no pneumothorax. There is a hiatal hernia. The thoracic aorta is normal in caliber and without evidence of dissection. There is no filling defect within the pulmonary arteries to suggest pulmonary embolism. There is no pathologically enlarged adenopathy. There is no pneumothorax. The visualized intra-abdominal structures are unremarkable. IMPRESSION: 1. No evidence of aortic aneurysm, dissection or pulmonary embolism. 2. Minimal atelectasis and/or pneumonitis in the lingula. 3. Hiatal hernia. Dictated by: Dictated on workstation # [id number]
[2021-09-04] MEDS ORDERED: IBUP-1773 PO (18:48)
[2021-09-04] MEDS ORDERED: METH-732 PO (18:48)
[2021-09-04] MEDS ORDERED: ORPHENADRINE 60 MG/2 ML (NORFLEX) AMP (ED ONLY) IVP STA (19:05)
== END 2021-09-04 19:20 | disposition home or self-care (01) ==
LOC: EDUNIT# 17:23 → ER FS 17:25
DX: S29.012A Strain of muscle and tendon of back wall of thorax, initial encounter (principal); I44.4 Left anterior fascicular block; M54.2 Cervicalgia; Z86.79 Personal history of other diseases of the circulatory system; X58.XXXA Exposure to other specified factors, initial encounter
CPT/HCPCS: 36415; 71275; 80053; 83735; 83874; 83880; 84484; 85025; 85610; 85730; 93005; 93041; Q9967